=== PATIENT | female | born 1995 | race Caucasian/White ===

== ENCOUNTER 2017-06-16 15:13 | Emergency (ER) | payer OTHER ==
[2017-06-16 15:19] VITALS: BP 131/87; PULSE 89; RESP 18; TEMP 98.1; O2SAT 99
--- NOTE | 2017-06-16 15:52 | EDPHY ---
H & P Time Seen by Provider: 06/16/17 15:28 HPI/ROS: CHIEF COMPLAINT: Fever HISTORY OF PRESENT ILLNESS: 22-year-old female presents with a 5 day history of fever. Onset of fever 4 days ago. Associated with a koob-[id number] headache, nasal congestion, sore throat and cough. The cough is mild and just started today. Fever and headache alleviated with ibuprofen. No nausea or vomiting. No associated shortness of breath. Ongoing diarrhea for 1 year, 3-4 episodes daily after traveling internationally. REVIEW OF SYSTEMS: Eyes: No visual changes, no drainage Respiratory: no shortness of breath Cardiac: No chest pain Gastrointestinal: No nausea, no vomiting, no abdominal pain Genitourinary: no dysuria Musculoskeletal: No myalgias Skin: No rash Neurological: no numbness, no weakness Psychiatric: No depression Past Medical/Surgical History: Denies Social History: PCP: Dr. Ruggiero Smoking Status: Never smoked Physical Exam: General Appearance: Alert, pleasant, nontoxic-appearing Eyes: Pupils equal and round, no conjunctival injection ENT, Mouth: Mucous membranes moist, no pharyngeal erythema Neck: Normal inspection, no adenopathy Respiratory: Lungs are clear to auscultation Cardiovascular: Regular rate and rhythm Gastrointestinal: Abdomen is soft and nontender Neurological: A&O, nonfocal, normal gait Skin: Warm and dry Extremities: Normal inspection Psychiatric: Mood and affect normal Constitutional: Initial Vital Signs Temperature (C) 36.7 C 06/16/17 15:16 Heart Rate 89 06/16/17 15:16 Respiratory Rate 18 06/16/17 15:16 Blood Pressure 131/87 H 06/16/17 15:16 O2 Sat (%) 99 06/16/17 15:16 O2 Delivery Mode Room Air Allergies/Adverse Reactions: No Known Allergies Allergy (Unverified 06/16/17 15:16) Home Medications: Medication Instructions Recorded NK [No Known Home Meds] 06/16/17 Medical Decision Making ED Course/Re-evaluation: This patient presents with fever and URI symptoms. There is no evidence of pneumonia, acute sinusitis or meningitis and antibiotics are not indicated in this patient. She also has a year long history of diarrhea. She was given a stool specimen container and lab slip for GI pathogen panel. She has an appointment in June to follow up with GI. Differential Diagnosis: Differential diagnosis includes pyelonephritis, cholecystitis, influenza, cellulitis, pneumonia, abscess, meningitis. Departure - Departure Disposition: Home, Routine, Self-Care Clinical Impression: Viral syndrome Diarrhea Qualifiers: Diarrhea type: unspecified type Qualified Code(s): R19.7 - Diarrhea, unspecified Condition: Good Instructions: Chronic Diarrhea (ED), Viral Syndrome (ED) Additional Instructions: Alternate Tylenol and ibuprofen every 3 hr for fever control. Drink plenty of fluids. Return a stool sample and the lab slip to the [facility] lab for analysis. Referrals: CLEMENTINE PARTIDA [Primary Care Provider] - As per Instructions Stand Alone Forms: Statement of Treatment
== END 2017-06-16 16:07 | disposition home or self-care (01) ==
DX: B34.9 Viral infection, unspecified (principal); R19.7 Diarrhea, unspecified